=== PATIENT | male | born 1940 | race Caucasian/White ===

== ENCOUNTER → 2018-03-12 09:23 | Outpatient (CLI) | payer MEDICARE, SELFPAY ==
--- NOTE | 2018-03-12 09:29 | STE_ITS ---
Reason For Study: CAD Stress Results Protocol: Alfred Protocol Maximum Predicted HR: 144 bpm Target HR: 122 bpm% Max imum Predicted HR: 100 % Heart Stage Duration Rate BPCom ment (mm:ss) (bpm) Baseline 58 132/80 No Chest Pain Alfred Protocol Stage I 3:00 95 140/78No Chest Pain Alfred Protocol Stage II 3:00 12 6 152/70No Chest Pain Alfred Protocol Stage III 3:00 14 4 172/70No Chest Pain; Mild Dyspnea No Chest Pain; Apical Images Obtained When HR Was Recovery 84 140/66 144 BPM Stress Duration: 9:00 mm:ss Maximum Stress HR: 144 bpmM ETS: 10 Baseline Echocardiogram Findings The estimated ejection fraction is 65 %. Stress Echo Wall motion Data Resting WMIntermediate WMStress WM Resting Wall Motion Wall Motion Stress No regional wall motion No regional wall motion abnormalities noted. abnormalities noted. EKG Data Normal intervals are noted. The patient exercised according to the regular Alfred protocol for a total duration of 9:00. The maximum heart rate attained was 150 beats per minute. This was 104% of maximum predicted heart rate. The patient exercised into stage 4 of the Alfred protocol. During stress, there were no ST or T wave changes noted to suggest ischemia. Interpretation Summary The estimated ejection fraction is 65 %. Normal, adequate, treadmill echocardiogram. Negative for ischemia by EKG and echocardiographic criteria. No anginal symptoms noted. Rare PAC noted. Hypertensive blood pressure response to exercise. Average exercise capacity for age. Final LVEF is 75%. No complications. Ordering Physician: Renato Bowden Referring Physician: Renato Bowden Performed By: Justin Church RCS
== END ==
PROVIDERS: Family Provider Family Medicine; PCP Family Medicine; Visit Provider Internal Medicine Cardiovascular Disease
DX: I25.10 Atherosclerotic heart disease of native coronary artery without angina pectoris (principal); I10 Essential (primary) hypertension; E78.5 Hyperlipidemia, unspecified; Z95.1 Presence of aortocoronary bypass graft
CPT/HCPCS: 93017; 93350

== ENCOUNTER → 2019-05-24 10:46 | Outpatient (CLI) | payer MEDICARE, SELFPAY ==
[2019-05-02 09:24] VITALS: BMI 26.4
--- NOTE | 2019-05-24 10:48 | STEWCON_ITS ---
Reason For Study: CAD; S/P CABG Stress Results Protocol: Alfred Protocol Maximum Predicted HR: 143 bpm Target HR: 122 bpm % Maximum Predicted HR: 94 % DurationHeart Rate Stage (mm:ss) (bpm) BP Comment Baseline 63 138/62No Chest Pain; 3 ML Diluted Definity Given Alfred Protocol Stage I 3:00 82 140/60No Chest Pain Alfred Protocol Stage II 3:00 111 156/62No Chest Pain Alfred Protocol Stage III 3:00 134 172/64No Chest Pain; Mild Dyspnea Recovery 80 130/68No Chest Pain Stress Duration: 9:00 mm:ss Maximum Stress HR: 134 bpm METS: 10 Baseline Echocardiogram Findings The estimated ejection fraction is 65 %. Stress Echo Wall motion Data Resting WM Intermediate WM Stress WM Resting Wall Motion Wall Motion Stress No regional wall motion Mid-Lateral : Mildly hypokinetic. abnormalities noted. EKG Data The baseline ECG displays normal sinus rhythm. The patient exercised according to the regular Alfred protocol for a total duration of 9:00. The maximum heart rate attained was 139 beats per minute. This was 97% of maximum predicted heart rate. The patient exercised into stage 4 of the Alfred protocol. During stress, there were no ST or T wave changes noted to suggest ischemia. No clinical angina was noted. Interpretation Summary The estimated ejection fraction is 65 %. Mid-Lateral : Mildly hypokinetic Abnormal, adequate, treadmill echocardiogram. Positive for ischemia by echocardiographic criteria. No anginal symptoms noted. Rare PACs, PVCs, and ventricular triplet noted during peak exercise. Patient appeared to develop mid anterior lateral hypokinesis at peak exercise. Average exercise capacity for age. Final LVEF of 55%. Test terminated due to target heart rate achieved and dyspnea which may be an anginal equivalent. Poor echo windows requiring Definity agent makes interpretation somewhat problematic. No complications. The study was technically difficult. Contrast injection was performed. Ordering Physician: Renato oBwden Referring Physician: Esa Celeste Performed By: Daily Pradhan, SHARON, RVT
== END ==
PROVIDERS: Family Provider Family Medicine; PCP Family Medicine; Referring Provider Internal Medicine Cardiovascular Disease; Visit Provider Internal Medicine Cardiovascular Disease
DX: I25.10 Atherosclerotic heart disease of native coronary artery without angina pectoris (principal); I10 Essential (primary) hypertension; E78.5 Hyperlipidemia, unspecified; Z95.1 Presence of aortocoronary bypass graft
CPT/HCPCS: 93017; 93350; Q9957; A4216; C8928

== ENCOUNTER 2019-05-27 06:43 | Day surgery (SDC) | payer MEDICARE, SELFPAY ==
[2019-05-02 09:24] VITALS: BMI 26.4
--- NOTE | 2019-05-26 08:15 | RAD_ITS ---
STUDY: X-RAY CHEST REASON FOR EXAM: Male, 78 years old. Short of breath. Preheart catheter. TECHNIQUE: 2 view chest. COMPARISON: None. FINDINGS: No evidence of pneumonia, pulmonary edema, pneumothorax or pleural effusion. Emphysematous changes within the lungs. Cardiac silhouette, hilar and mediastinal contours with no acute findings. Atherosclerosis of the thoracic aorta. Sternotomy wires and mediastinal surgical clips. Degenerative osseous changes with no acute osseous abnormality. Right axillary surgical clips. RAD/Chest PA and Lateral IMPRESSION: No acute findings. Emphysema. Prior sternotomy probably for CABG. Electronically Signed: Osmel Li, at 4:14 EDT Tel , Service support ,
[2019-05-26 08:58] LABS: Hematocrit 41.7 % (40-54); Hemoglobin 13.5 g/dL (13.0-16.5); Mean Corp Hgb Conc 32.4 g/dL (32-36); Mean Corpuscular Hgb 29.6 pg (27.0-32.0); Mean Corpuscular Volume 91.4 fL (80-94); Mean Platelet Vol. 12.1 fl (6.2-12.0); Platelet Count 198 K/mm3 (150-450); RBC Distribution Width CV 14.5 % (11.6-14.6); RBC Distribution Width SD 48.9 fl (35.1-43.9); Red Blood Count 4.56 M/mm3 (4.6-6.2); White Blood Count 5.7 K/mm3 (4.4-11.0)
[2019-05-26 09:08] LABS: Prothrombin Time (Protime)PT. 12.8 SECONDS (11.7-14.9)
[2019-05-26 09:09] LABS: Partial Thromboplast Time 32.1 Seconds (24.1-36.2)
[2019-05-26 09:28] LABS: AST(SGOT) 27 U/L (15-37); Alanine Aminotransfer ALT/SGPT 32 U/L (16-61); Albumin, Serum 3.4 g/dL (3.2-5.0); Alkaline Phosphatase 48 U/L (45-117); Anion Gap 7 (5-15); BUN 24 mg/dL (7-18); BUN/Creat Ratio 25.2 RATIO (10-20); Bilirubin, Direct 0.09 mg/dL (0.00-0.30); Calcium,Total 8.5 mg/dL (8.5-10.1); Chloride 107 mmol/L (98-107); Cholesterol 216 mg/dL (200); Creatinine, Serum 0.95 mg/dL (0.70-1.30); EST Glomerular Filtration Rate 81 mL/min (>60); Est Glom Filt Rate - Afr Amer 98 mL/min (>60); Globulin 4.1 g/dL (2.2-4.2); Glucose 92 mg/dL (74-106); High Density Lipoprotein 60 mg/dL; Potassium 4.2 mmol/L (3.5-5.1); Protein, Total 7.5 g/dL (6.4-8.2); Sodium Level 138 mmol/L (136-145); Triglycerides 63 mg/dL; Very Low Density Lipoprotein 13 mg/dL (5-40)
[2019-05-27 07:03] VITALS: BMI 25.9
--- NOTE | 2019-05-27 09:20 | PCM.HP.BLA ---
Problem List (1) Abnormal stress echocardiogram Status: Acute (2) Atherosclerosis of coronary artery of [place] heart without angina pectoris Status: Chronic Comment: CABG x 3- CRONIN-Ramus, SARAH-LAD, SVG-OM 11/13/2006 (3) Essential hypertension Status: Chronic (4) H/O coronary artery bypass surgery Status: Chronic Comment: CABG x 3- CRONIN-Ramus, SARAH-LAD, SVG-OM 11/13/2006 (5) Hyperlipidemia Status: Chronic History and Physical Date of Admission: 05/27/19 [facility] [address] [place] [address] OFFICE VISIT Date of Service: 05/02/19 MR#: [id number] Acct: [id number] Name: SOCO LEVIN Rep #: [id number] : 1940 Provider: Renato Bowden MD Age/Sex: 78/M Location: [facility] [place] Status: Signed HPI HPI History of Present Illness Details: HPI Chief Complaint: routine f/u Details: Details: Mister Levin Is a very pleasant 78-year-old gentleman with a history of hypertension, hypercholesterolemia, coronary artery disease who underwent catheterization in 2006 at [facility], [place], operated by [facility]. At that time he was found to have a critical lesion in his LAD and ramus intermedius. Intervention was planned however upon engagement of the left main coronary artery there appeared to be a left main dissection. Patient was treated with an intra-aortic balloon pump and underwent emergent three-vessel bypass surgery by Dr. Ulrich. At that time he underwent a CRONIN to the ramus intermedius, and SARAH to the LAD, and an SVG to the obtuse marginal. Subsequent to that the patient has done extraordinarily well. He denies any chest pain, angina, shortness of breath or dyspnea on exertion. Unfortunately as of January 2014, he discontinued all of his medications and did not follow-up with a construction representative. The patient became aware that I had transferred out to [place] which is closer to his home, and he is here now for follow-up. Patient states that he had no issues with his medications other than some mild myalgias with the low-dose Crestor. He has been tried on Zetia, and Zocor in the past and stopped them due to myalgias. patient was previously admitted on 12/15/14 for lower GI bleeding, requiring 3 units of PRBCs. His final hemoglobin was 9.3. He had some asymptomatic ventricular tachycardia according to the report but no additional workup was performed. Patient has a history of diverticulitis and had consumed peanuts inadvertently. He's had no further GI bleeding and is back on his baby aspirin. Since discharge she has had no chest pain, angina, shortness of breath or dyspnea on exertion. He is taking and tolerating his medications well. He has had no change in his exercise capacity. Patient works as a baker, and has had no change in his daily activity. Unfortunately is unable to take statins due to myalgias. His blood pressure at home runs in the 130s systolic. His most recent walking stress echocardiogram was 03/12/18 which was negative for inducible ischemia. Ejection fraction is 65%. In our office today his blood pressure is 150/66, and pulse is 52 and regular. His physical exam is as below. His lipids As of 12/19/14 showed an HDL of 46 and LDL 109. Repeat lipids are pending. Intake Vital Signs 05/02/19 Height 5 ft 11 in 05/02/19 Weight: 190 lb 05/02/19 Body Mass Index (BMI) 26.4 05/02/19 Blood Pressure 150/66 H 05/02/19 Blood Pressure Location Rt brachial 05/02/19 Blood Pressure Position Sitting 05/02/19 Respiratory Rate 20 H 05/02/19 Pulse Rate 52 L 05/02/19 Pulse Source Auscultation Intake Visit Reasons: 6 M Component Assembler Required: No Accompanied by: Is patient in pain?: No Allergies venom-honey bee [bee venom (honey bee)] Allergy (Verified 04/29/19 10:04) Anaphylaxis ezetimibe [From Zetia] Adverse Reaction (Intermediate, Verified 04/29/19 10:04) Dizziness simvastatin Adverse Reaction (Intermediate, Verified 04/29/19 10:04) Dizziness rosuvastatin [From Crestor] Adverse Reaction (Verified 04/29/19 10:04) confusion Medications aspirin 81 mg tablet,delayed release 81 mg PO QDAY 02/20/18 [History Confirmed 05/02/19] coenzyme Q10 100 mg capsule 100 mg PO QDAY 02/20/18 [History Confirmed 05/02/19] omega-3 fatty acids 1,000 mg capsule 1,000 mg PO QDAY 02/20/18 [History Confirmed 05/02/19] metoprolol succinate ER 25 mg tablet,extended release 24 hr 12.5 mg PO QDAY tab 03/08/18 [History Confirmed 05/02/19] lisinopril 2.5 mg tablet 2.5 mg PO DAILY 05/02/19 [History Confirmed 05/02/19] [facility] Medical History Hyperlipidemia (Chronic) Atherosclerosis of coronary artery of [place] heart without angina pectoris (Chronic) GI bleed (Chronic) Traumatic amputation (Chronic) Hypertension (Inactive) Surgical History H/O coronary artery bypass surgery (Chronic 11/13/06) Family History Brother CAD (coronary artery disease) Father CVA (cerebral vascular accident) Social History (Updated 05/02/19 @ 09:43 by Renato Bowden MD) Smoking Status: Former smoker ROS Const Const: Positive for other (Feels well); negative for fatigue, weakness, body ache, fever(s), headache(s), chills, frequent falls, night sweats, daytime sleepiness, difficulty sleeping, excessive sweating, weight gain, weight loss, increased appetite, poor appetite or anorexia Eyes Eyes: Negative for blind spots, loss of peripheral vision, transient loss of vision, blurry vision, change in vision, double vision, floaters, tunnel vision or other ENT ENT: Negative for headache(s), dizziness, hearing loss, tinnitus, Nosebleed/epistaxis, balance problems, post nasal drip, lip swelling, tongue swelling, bleeding gums, hoarseness, neck pain, dry mouth or other Cardio Chest Pain: No Palpitations: No Edema: None Muscle aches with walking: None Resp Respiratory: Negative for SOB with activity, SOB at rest, SOB orthopnea\SOB lying down, Cough, Coughing up blood/hemoptysis, chest congestion, pain on inspiration, snoring, stridor, wheezing, crackles, paroxysmal nocturnal dyspnea or other GI GI: Negative nausea, vomiting, heartburn, constipation, belching, bloating, cramping, vomiting blood/hematemesis, bright, red blood in stools, black,tarry stools, loose stools, Difficulty Swallowing or other : Negative for hematuria, frequent nighttime urination/ nocturia, erectile dysfunction or abnormal vaginal bleeding Musc Musc: Negative for muscle aches/ myalgia, muscle weakness, joint pain or balance problems Skin Skin: Negative redness, non-healing lesions, rash, unusual bruising, skin ulcer, wounds, jaundice or other Neuro Neuro: Negative for dizziness, lightheadedness, near syncope, syncope, orthostatic symptoms, frequent falls, headache(s), weakness, confusion, memory loss, restless legs, blurry vision, double vision, vertigo, seizures, lack of coordination or other John Hematologic/Lymphatic: Negative for easy bleeding, easy bruising, enlarged lymph nodes or other Endo Endo: Negative for fatigue, cold intolerance, heat intolerance, excessive sweating, flushing, increased thirst/drinking, increased hunger, hair loss, hair growth or other Psych Psych: Negative for anxiety, depression, thoughts of harming anyone, thoughts of harming yourself, visual hallucinations, panic attacks or audible hallucinations Allergy Allergy/Immunology: Negative for throat swelling, Negative for tongue swelling, Negative for hives, Negative for rash, Negative for lip swelling Cardiology Exam Const Appearance: cooperative, healthy appearing and no acute distress Nutritional Appearance: well nourished Orientation: alert, oriented x3 and oriented to person Head Head: normal to inspection, normocephalic and atraumatic Nose: external nose normal Face and Sinus: face symmetric Mouth: oral mucosae normal Eyes General: appearance normal, both eyes and all related structures Eyelids: eyelids normal Conjunctivae: conjunctivae normal Pupils: PERRL and normal by confrontation EOM: EOM intact bilaterally Neck Neck: normal visual inspection and full ROM Carotids: normal carotid upstroke Chest Chest inspection: normal inspection of the chest Auscultation: Bilateral: Clear to Auscultation Cardio Palpation: normal PMI Rate: regular rate Rhythm: regular rhythm Heart sounds: S1 normal and S2 normal GI GI: normal to inspection, no hepatosplenomegaly and bowel sounds present Neuro General: alert, awake, oriented x3, CN's II-XI intact bilaterally and moves all extremities Skin Skin: no rashes or lesions noted Extremities Pulses: Normal: Right Femoral Pulse, Left Femoral Pulse, Right Dorsalis Pedis Pulse, Left Dorsalis Pedis Pulse, Right Posterior Tibial Pulse, Left Posterior Tibial Pulse, Right Radial Pulse, Left Radial Pulse Lower Extremity Edema: None: Bilateral Psych Psychological: normal affect Assessment & Plan 1. Atherosclerosis of coronary artery of [place] heart without angina pectoris I25.10 CABG x 3- CRONIN-Ramus, SARAH-LAD, SVG-OM 11/13/2006 Plan 1. Coronary artery disease: It is been 12 years since patient's bypass surgery, and I recommended the patient undergo a yearly surveillance stress echocardiogram to monitor his grafts. If this is grossly abnormal, the patient may require diagnostic coronary angiogram and graft angiography. In the meantime we will continue baby aspirin. He has a history of GI bleeding, so Would be very hesitant to place him on dual antiplatelet therapy unless absolutely necessary. Orders Orders: Stress Test Echo w/o Contrast Today 2. Hyperlipidemia E78.5 Plan 2. Hyperlipidemia: Unfortunately the patient is unable to tolerate statins, Zetia, and is maintained on coenzyme Q and omega-3 fatty acids. Repeat lipids are pending. Orders Orders: Stress Test Echo w/o Contrast Today 3. Essential hypertension I10 Plan 3. Hypertension: Patient's blood pressure at home runs in the 130s but today it is slightly elevated as he had to run back and forth to his car. We will check his treadmill echocardiogram for blood pressure response to exercise, and if it is significant, would recommend increasing his lisinopril. 4. Return office in 6 months. This note was generated using a voice recognition system and there may be incorrect words, spelling or punctuation that were not noted when reviewing the office note prior to saving. Orders Orders: Stress Test Echo w/o Contrast Today Plan Detail Other Orders Orders: Stress Test Echo w/o Contrast Today Z95.1 Other Medications New: lisinopril 2.5 mg PO DAILY Follow Up +6M (Bowden) Coding Level of Care Code Off vis,est,level 3 Diagnoses Atherosclerosis of coronary artery of [place] heart without angina pectoris I25.10 Hyperlipidemia E78.5 Essential hypertension I10 Coding Level of Care Code Off vis,est,level 3 Diagnoses Atherosclerosis of coronary artery of [place] heart without angina pectoris I25.10 Hyperlipidemia E78.5 Essential hypertension I10 Supplemental Info Supplemental Information Labs LDL Cholesterol 109 mg/dL (0-130) 12/19/14 HDL Cholesterol 46 mg/dL (40-) 12/19/14 Triglycerides 61 mg/dL (0-199) 12/19/14 VLDL Cholesterol 12 mg/dL (5-40) 12/19/14 Diagnostics Stress Echocardiogram 03/12/18 05/02/19 0943 <Electronically signed by Renato Bowden MD> Date Renato Bowden MD Cosign Signature: Date (if applicable) CC: Esa Celeste MD ~ Interventional cardiology addendum: The patient seen and examined on day of procedure, no interim change noted. The risks/benefits of the procedure were thoroughly explained the patient including specific attention to lack of on-site surgical back-up, and the patient is agreed to proceed. Left heart catheterization with graft to follow.
--- NOTE | 2019-05-27 09:30 | CL.D_ITS ---
Patient Name: SOCO WHITMAN Study Date: 05/27/2019 Performing: Renato Bowden MD Ht: 71 inches 180.34 cm : 1940 Wt: 185.98 lbs 84.36 kg Age: 78 Gender: male BSA: 2.04 PROCEDURE(S) PERFORMED XX64-SUY/COR/LV/CABG CLINICAL PROFILE AND INDICATIONS Indications: Stable Known CAD Heart Failure: None Stress/Imaging Date: 05/24/2019 Angina Classification Anginal Classification w/in 2 Weeks: No symptoms CAD Presentations: No Sxs, no angina. Comorbidities/Risk Factors: Hypertension Dyslipidemia Prior CABG CONCLUSIONS Triple vessel CAD of the LAD, RAMUS and LCX Non obstructive coronary artery disease of non bypassed RCA. Perserved Left Ventricular systolic function with normal EDP LVEF: by LV gram 65 % Widely patent SVG to OM Widely patent CRONIN to RAMUS Widely patent intact SARAH to LAD. RECOMMENDATIONS Management as per referring Bilingual Medical Assistant Manual sheath removal. DESCRIPTION OF PROCEDURE The patient arrived to the procedure lab. The risks and benefits of the procedure as well as a full d escription of our services here and current unavailability of surgical backup were fully explained to the patient and/or their significant other prior to the catheterization. The Timeout was completed, verifying the correct patient and procedure. The patient's procedural site was prepped and draped in the usual fashion. Local anesthetic was given subcutaneously to right groin region with Lidocaine 2%. Using a modified Seldinger technique, arterial access was obtained via the right femoral artery, a 4 Fr sheath was inserted Left Coronary Artery selective angiography was performed in multiple views us ing a 4 Fr. JL5 catheter. Right Coronary Artery selective angiography was then performed in multiple views using a 4 Fr. 3DRC catheter. Saphenous Vein graft to the OM 1 selective angiography was perform ed in multiple views using a 4 Fr. 3DRC catheter. Left internal mammary artery graft to the Ramus selective angiography was performed in multiple views using a 4 Fr. 3DRC catheter. Right in ternal mammary artery graft to the LAD selective angiography was performed in multiple views using a 5 Fr. IM catheter. Left Ventriculography was performed in ALFREDO projection using a 4 Fr. Pigtail cathet er. LV to AO pullback pressures were then recorded.The arterial sheath was pulled and manual compress ion applied until hemostasis is achieved. CORONARY ANGIOGRAPHY DOMINANCE: Right Dominant LEFT HEART ASSESSMENT Left Ventricular Ejection Fraction: by LV Gram 65 % Normal LV wall motion Normal Left Ventricular systolic function LVEDP: 15 mmHg LEFT MAIN: Non-obstructive LEFT ANTERIOR DESCENDING ARTERY: PROX LAD: 85 % Stenosis CIRCUMFLEX ARTERY: MID CIRC: 85 % Stenosis RAMUS: 85 % Stenosis RIGHT CORONARY ARTERY: MID RCA: Mild luminal irregularities less than 30% GRAFTS: CRONIN graft to the Ramus is patent SARAH graft to the LAD is patent Saphenous Vein graft to the 1st OM is patent COMPLICATIONS No Complications PROCEDURE MEDICATIONS Versed 1 mg IV Oxygen: 2 L/min via nasal cannula SUMMARY OF HEMODYNAMIC DATA Time AIR REST ECG 07:02:19 AO 150/55 (88) SA 08:54:32 LV 149/-13, 12 09:16:18 LV 153/-12, 15 09:16:25 LVp 148/-18, 15 09:16:32 AOp 140/50 (84) 09:16:37 Signed By Renato Bowden MD On 05/27/2019 09:29:38 Renato Bodwen MD
== END 2019-05-27 14:46 | disposition home or self-care (01) ==
LOC: CLSP 06:43
PROVIDERS: Family Provider Family Medicine; PCP Family Medicine; Referring Provider Internal Medicine Cardiovascular Disease; Visit Provider Internal Medicine Cardiovascular Disease
DX: I25.10 Atherosclerotic heart disease of native coronary artery without angina pectoris (principal); I10 Essential (primary) hypertension; E78.5 Hyperlipidemia, unspecified; R94.39 Abnormal result of other cardiovascular function study; Z95.1 Presence of aortocoronary bypass graft; Z79.82 Long term (current) use of aspirin; Z79.899 Other long term (current) drug therapy; Z87.891 Personal history of nicotine dependence
CPT/HCPCS: 36415; 71046; 80048; 80061; 80076; 85027; 85610; 85730; 93459; 99152; 99153; J7040; C1769; C1894; Q9967

== ENCOUNTER → 2023-04-20 | Outpatient (CLI) | payer MEDICARE, SELFPAY ==
--- NOTE | 2023-04-20 14:21 | VDLE_ITS ---
Reason For Study: Low Back Pain RIGHT LEFT GSV is normal. GSV is normal. CFV is compressible, spontaneous, phasic, CFV is compressible, spontaneous, phasic, competent and demonstrates normal competent, and demonstrates normal augmentation. augmentation. FV is compressible, spontaneous, phasic, FV is compressible, spontaneous, phasic, competent and demonstrates normal competent and demonstrates normal augmentation. augmentation. POP V is compressible, phasic, and POP V is compressible, spontaneous, phasic, INCOMPETENT for greater than 1.0 second. competent and demonstrates normal T/P Trunk is compressible. augmentation. PTV is compressible. T/P Trunk is compressible. RT PerV is compressible. PTV is compressible. Procedure LT PerV is compressible. This is a venous duplex using B-mode, color flow and spectral Doppler. Exam performed in department. A preliminary report was called and/or faxed to Dr. Byrne. VL/Venous Duplex US - Kevin Extrem Interpretation Summary No evidence for acute deep venous thrombosis bilateral lower extremities with p atent and compressible bilateral great saphenous veins. Incompetent right popliteal vein for greater than 1 second Ordering Physician: Wes Byrne Referring Physician: Wes Byrne Performed By: Chely Jeffrey, SHARON, RVT
[2023-04-20 14:45] LABS: ALB/GLOB Ratio 0.6 RATIO (0.9-2.4); AST(SGOT) 39 U/L (15-37); Alanine Aminotransfer ALT/SGPT 28 U/L (16-61); Alkaline Phosphatase 73 U/L (45-117); Anion Gap 5 (5-15); BUN 15 mg/dL (7-18); BUN/Creat Ratio 18.2 RATIO (10-20); Calcium,Total 9.1 mg/dL (8.5-10.1); Chloride 102 mmol/L (98-107); Creatinine, Serum 0.82 mg/dL (0.70-1.30); EST Glomerular Filtration Rate 95 mL/min (>60); Est Glom Filt Rate - Afr Amer 115 mL/min (>60); Globulin 4.7 g/dL (2.2-4.2); Glucose 86 mg/dL (74-106); Potassium 4.6 mmol/L (3.5-5.1); Protein, Total 7.7 g/dL (6.4-8.2); Sodium Level 135 mmol/L (136-145)
== END | disposition home or self-care (01) ==
PROVIDERS: PCP Internal Medicine; Referring Provider Internal Medicine; Visit Provider Internal Medicine
DX: R22.43 Localized swelling, mass and lump, lower limb, bilateral (principal); M54.50 Low back pain, unspecified; Z13.0 Encounter for screening for diseases of the blood and blood-forming organs and certain disorders involving the immune mechanism
CPT/HCPCS: 36415; 80053; 93970

== ENCOUNTER → 2023-04-22 | Outpatient (CLI) | payer MEDICARE, SELFPAY ==
--- NOTE | 2023-04-22 14:04 | MRI_ITS ---
STUDY: MRI LUMBAR SPINE WITHOUT CONTRAST REASON FOR EXAM: Male, 82 years old. BACK PAIN TECHNIQUE: Standardized fat and water weighted pulse sequences were obtained in the sagittal and axial planes. COMPARISON: None FINDINGS: T12-L1: Normal endplates. Normal disc height, hydration and morphology. Normal bilateral facet joints. Normal central canal and bilateral lateral recesses. Normal bilateral intervertebral neural foramina. Normal lumbar lordosis. There is no substantial scoliosis. Normal conus medullaris that terminates at T12-L1. No evidence for acute fracture or subluxation. There are multiple. Scattered low signal lesions seen throughout much of the lumbar spine and sacrum at all multiple pulse weighted sequences consistent with nonspecific sclerotic lesions possibly metastatic. L1-2: Normal endplates. Normal disc height, desiccation and minimal annular bulge.. Normal bilateral facet joints. Normal central canal and bilateral lateral recesses. Normal bilateral intervertebral neural foramina. L2-3: Normal endplates. Normal disc height, desiccation and minimal bulging disc osteophyte complex.. Minor facet arthropathy.. Normal central canal and bilateral lateral recesses. Normal bilateral intervertebral neural foramina. L3-4: Normal endplates. Normal disc height, desiccation and minimal annular bulge.. Facet arthropathy and thickening of ligamenta flava... Mild narrowing of central canal and normal bilateral lateral recesses. Moderate bilateral neural foraminal encroachment.. L4-5: Normal endplates. Normal disc height, hydration and mild annular bulge. Facet arthropathy and thickening of ligamenta flava.. Normal central canal. Severe bilateral lateral recess and neural foraminal stenosis exaggerated by shortened pedicles L5-S1: Normal endplates. Normal disc height, desiccation and minimal bulge.. Bilateral facet arthropathy. Normal central canal and bilateral lateral recesses. Moderate left neural foramina stenosis and moderate to severe narrowing on the right Normal visualized sacral ala. Normal visualized paraspinous soft tissue structures. 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
== END | disposition home or self-care (01) ==
LOC: MRI 13:54
PROVIDERS: PCP Internal Medicine; Referring Provider Internal Medicine; Visit Provider Internal Medicine
DX: M54.50 Low back pain, unspecified (principal)
CPT/HCPCS: 72148

== ENCOUNTER → 2023-05-05 | Outpatient (CLI) | payer MEDICARE, SELFPAY ==
--- NOTE | 2023-05-05 14:52 | ECHOD_ITS ---
Reason For Study: CAD/ASHD Procedure This was a 2D Doppler, Color Flow transthoracic echocardiogram. The study was technically difficult. Exam performed in department. Left Ventricle Normal size and thickness. The left ventricular ejection fraction is 65 %. Normal diastology for age. Right Ventricle Normal right ventricle. Atria The left atrium is mildly enlarged. Normal right atrium. Mitral Valve There is Severe focal posterior mitral annular calcification. Trivial mitral valve insufficiency. Tricuspid Valve Mild tricuspid valve insufficiency. Normal pulmonary artery pressure. Aortic Valve Moderate diffuse aortic valve calcification. The aortic valve is not well visualized in the short axis view. Mild aortic valve stenosis on 2D images. Pulmonic Valve The pulmonic valve is not well visualized. Great Vessels Normal sized aortic root. Pericardium/Pleural No pericardial effusion. MMode/2D Measurements & Calculations LVIDd: 5.0 cm IVSd: 0.93 cm LVOT diam: 2.1 cm LVIDs: 3.8 cm LVPWd: 0.93 cm LVOT area: 3.4 cm2 RVDd: 4.7 cm FS: 24.5 % Ao root diam: 3.1 cm LAV(MOD-bp): 66.8 ml LVAd ap4: 34.6 cm2 LA dimension: 4.2 cm LAV(MOD-bp) Indexed: 34.2 ml/m2 LVLd ap4: 8.3 cm LAV(MOD-sp2): 75.6 ml EDV(MOD-sp4): 118.0 ml LAV(MOD-sp4): 54.9 ml EDV(sp4-el): 123.2 ml LVAs ap4: 18.3 cm2 LVLs ap4: 7.1 cm ESV(MOD-sp4): 40.4 ml ESV(sp4-el): 39.6 ml EF(MOD-sp4): 65.8 % EF(sp4-el): 67.8 % SV(MOD-sp4): 77.6 ml SV(sp4-el): 83.6 ml LA A4 area: 19.2 cm2 RA A4 area: 17.0 cm2 TAPSE: 1.4 cm Time Measurements MV dec time: 0.19 sec Doppler Measurements & Calculations MV E max yoel: 89.8 cm/sec Lat Peak E' Yoel: 13.1 cm/sec Med Peak E' Yoel: 8.5 cm/sec MV A max yoel: 79.3 cm/sec E/E' lat: 6.8 E/E' med: 10.5 MV E/A: 1.1 MV V2 max: 92.8 cm/sec MV P1/2t max yoel: 91.8 cm/sec Ao V2 max: 177.5 cm/sec MV max P.4 mmHg MV P1/2t: 140.3 msec Ao max P.6 mmHg MV V2 mean: 54.6 cm/sec MV mean P.4 mmHg MV dec slope: 191.7 cm/sec2 TUSHAR(V,D): 1.8 cm2 MV V2 VTI: 38.2 cm MVA(P1/2t): 1.6 cm2 LV V1 max: 93.6 cm/sec PA V2 max: 66.3 cm/sec TR max yoel: 251.0 cm/sec LV V1 max P.5 mmHg TR max P.2 mmHg ECHO/Echo Complete Interpretation Summary The left ventricular ejection fraction is 65 %. Normal diastology for age. The left atrium is mildly enlarged. There is Severe focal posterior mitral annular calcification. Moderate diffuse aortic valve calcification. Mild aortic valve stenosis on 2D images. Ordering Physician: Alhaji Pride Referring Physician: Alhaji Pride Performed By: Justin Church RCS
== END | disposition home or self-care (01) ==
LOC: CVS 14:48
PROVIDERS: PCP Internal Medicine; Referring Provider Internal Medicine Cardiovascular Disease; Visit Provider Internal Medicine Cardiovascular Disease
DX: Z98.890 Other specified postprocedural states (principal); I25.10 Atherosclerotic heart disease of native coronary artery without angina pectoris; I10 Essential (primary) hypertension; Z95.1 Presence of aortocoronary bypass graft
CPT/HCPCS: 93306

== ENCOUNTER → 2023-05-21 | Outpatient (CLI) | payer MEDICARE, SELFPAY ==
[2023-05-21 17:37] LABS: Absolute Lymphocyte Count 1.46 X10^3/uL (0.83-4.51); Absolute Neutrophil Count 4.6 X10^3/uL (2.0-7.7); Basophil# 0.06 X10^3/uL; Basophil% 0.8 % (0-1); Eosinophil# 0.47 X10^3/uL; Eosinophils% 6.2 % (0-5); Hematocrit 35.8 % (40-54); Hemoglobin 11.4 g/dL (13.0-16.5); Lymphocyte # 1.46 X10^3/ul (0.83-4.51); Lymphocyte % 19.1 % (19-41); Mean Corp Hgb Conc 31.8 g/dL (32-36); Mean Corpuscular Hgb 28.1 pg (27.0-32.0); Mean Corpuscular Volume 88.4 fL (80-94); Mean Platelet Vol. 12.3 fl (6.2-12.0); Monocyte% 13.1 % (0-10); NRBC Flagged by Analyzer 0 % (0-5); Neutrophil # 4.61 X10^3/uL (2.7-7.7); Neutrophil % 60.4 % (47-70); Platelet Count 256 K/mm3 (150-450); RBC Distribution Width CV 14.3 % (11.6-14.6); Red Blood Count 4.05 M/mm3 (4.6-6.2); White Blood Count 7.6 K/mm3 (4.4-11.0)
[2023-05-21 18:01] LABS: ALB/GLOB Ratio 0.6 RATIO (0.9-2.4); AST(SGOT) 40 U/L (15-37); Alanine Aminotransfer ALT/SGPT 26 U/L (16-61); Albumin, Serum 2.9 g/dL (3.2-5.0); Alkaline Phosphatase 72 U/L (45-117); Anion Gap 5 (5-15); BUN 20 mg/dL (7-18); BUN/Creat Ratio 25.4 RATIO (10-20); Calcium,Total 8.8 mg/dL (8.5-10.1); Chloride 101 mmol/L (98-107); Creatinine, Serum 0.79 mg/dL (0.70-1.30); EST Glomerular Filtration Rate 100 mL/min (>60); Est Glom Filt Rate - Afr Amer 121 mL/min (>60); Glucose 94 mg/dL (74-106); PSA,Total - Annual Screen 3.09 ng/mL (0.00-4.00); Potassium 4.4 mmol/L (3.5-5.1); Protein, Total 7.9 g/dL (6.4-8.2); Sodium Level 135 mmol/L (136-145); Thyroid Stim Hormone (TSH) 2.69 uIU/mL (0.358-3.74)
== END | disposition home or self-care (01) ==
LOC: POLAB3 16:01
PROVIDERS: PCP Internal Medicine; Visit Provider Family Medicine Geriatric Medicine
DX: I25.10 Atherosclerotic heart disease of native coronary artery without angina pectoris (principal); Z13.89 Encounter for screening for other disorder; Z12.5 Encounter for screening for malignant neoplasm of prostate
CPT/HCPCS: 36415; 80053; 84153; 84443; 85025; G0103

== ENCOUNTER → 2023-05-25 | Outpatient (CLI) | payer MEDICARE, SELFPAY ==
[2023-05-28 12:09] LABS: PROEL- A/G Ratio 0.8 (0.7-1.7); PROEL- Albumin 3.2 g/dL (2.9-4.4); PROEL- Alpha-1 Globulin 0.3 g/dL (0.0-0.4); PROEL- Alpha-2 Globulin 0.8 g/dL (0.4-1.0); PROEL- Beta Globulin 1.2 g/dL (0.7-1.3); PROEL- Gamma Globulin 1.7 g/dL (0.4-1.8); PROEL- TOTAL PROTEIN 7.2 g/dL (6.0-8.5); PROEL-M-Spike Not Observed g/dL (Not Observed); PROELU- Albumin, Urine 48.7 % (.); PROELU- Alpha-1-Globulin,Ur 3.7 % (.); PROELU- Alpha-2-Globulin,Ur 14.7 % (.); PROELU- Beta Globulin, Ur 19.3 % (.); PROELU- Gamma Globulin, Ur 13.7 % (.); Total Protein, Ur 34.6 mg/dL (Not Estab.)
== END | disposition home or self-care (01) ==
LOC: POLAB3 16:33
PROVIDERS: PCP Internal Medicine; Visit Provider Family Medicine Geriatric Medicine
DX: Z01.89 Encounter for other specified special examinations (principal); E87.1 Hypo-osmolality and hyponatremia
CPT/HCPCS: 36415; 84165; 84166

== ENCOUNTER → 2023-06-04 | Outpatient (CLI) | payer MEDICARE, SELFPAY ==
--- NOTE | 2023-06-04 11:34 | US_ITS ---
STUDY: THYROID ULTRASOUND REASON FOR EXAM: Male, 82 years old. Palpable nodule TECHNIQUE: Ultrasound evaluation of the thyroid was performed with real-time and static calloway-scale imaging. COMPARISON: None. FINDINGS: RIGHT LOBE: The right lobe of the thyroid gland measures 4.4 x 1.4 x 1.8 cm. There is a homogeneous echotexture. There are no demonstrated solid, cystic or complex lesions. LEFT LOBE: The left lobe of the thyroid gland measures 4.4 x 1.8 x 2.5 cm. There is a homogeneous echotexture. There is a well-defined hypoechoic solid and cystic 2.0 x 1.1 x 1.5 cm nodule in the left thyroid lobe This nodule is mixed cystic and solid, hypoechoic, [id number], smoothly marginated and contains no echogenic foci. TI-RADS points: 3. 2 TI-RADS category: TR3. This nodule is mildly suspicious. Recommend follow-up thyroid ultrasounds at 1, 3 and 5 years. ISTHMUS: The isthmus measures 2 mm. The regional lymph nodes are normal. US/Thyroid IMPRESSION: Normal-sized heterogeneous thyroid gland with left thyroid nodule. Characterization and follow-up described above. Electronically Signed: Cesar Milian MD at 15:22 EDT ,
== END | disposition home or self-care (01) ==
LOC: US 11:33
PROVIDERS: PCP Family Medicine Geriatric Medicine; Referring Provider Family Medicine Geriatric Medicine; Visit Provider Family Medicine Geriatric Medicine
DX: E03.9 Hypothyroidism, unspecified (principal)
CPT/HCPCS: 76536

== ENCOUNTER 2023-06-12 14:36 | Outpatient (CLI) | payer MEDICARE, SELFPAY ==
[2023-06-12 14:42] VITALS: BP 128/61; PULSE 65; RESP 18; TEMP 36.4; O2SAT 100; BMI 23.3
[2023-06-12] MEDS: 0.9% NaCl Peripheral Flush Adult/Peds IV (14:53)
[2023-06-12] MEDS: 0.9% NaCl IVPB Med Flush (250 mL) 15 ML IV (14:59)
[2023-06-12] MEDS: Zoledronic Acid 4 MG in 0.9% Normal Saline (100mL Bag) 100 ML 210 MG IV (15:08)
[2023-06-12 16:25] VITALS: BP 123/59; PULSE 64; TEMP 36.4
== END 2023-06-12 14:37 | disposition home or self-care (01) ==
PROVIDERS: PCP Family Medicine Geriatric Medicine; Referring Provider Family Medicine Geriatric Medicine; Visit Provider Family Medicine Geriatric Medicine
DX: C79.51 Secondary malignant neoplasm of bone (principal)
CPT/HCPCS: 96365; 71260; 74177; J3489; J7050; Q9967; A4216

== ENCOUNTER → 2023-06-12 | Outpatient (CLI) | payer MEDICARE, SELFPAY ==
--- NOTE | 2023-06-12 16:18 | CT_ITS ---
EXAM: CT CHEST, ABDOMEN AND PELVIS WITH INTRAVENOUS CONTRAST CLINICAL INDICATION: METASTASIS TO BONE TECHNIQUE: Helically acquired images were obtained of the chest, abdomen and pelvis with intravenous contrast. This CT exam was performed using one or more of the following dose reduction techniques: automated exposure control, adjustment of the mA and/or kV according to patient size, and/or use of iterative reconstruction technique. CONTRAST: IV 100mL Isovue-300 COMPARISON: No relevant prior studies available. FINDINGS: CHEST: LUNGS AND PLEURAL SPACES: Multiple bilateral pulmonary nodules are noted consistent with metastatic disease. Pulmonary nodules measuring up to 16 mm in maximum diameter. No pleural effusion or thickening. No pneumothorax. HEART: Normal. Heart size is normal. No pericardial effusion. MEDIASTINUM: Normal. No mediastinal or hilar adenopathy. Esophagus is unremarkable. No hiatal hernia. THYROID: Normal. No thyroid nodules or calcification. ABDOMEN: LIVER: Multiple lesions are seen within the liver also consistent with metastatic disease with multiple nodules measuring up to 3 cm in diameter. PANCREAS: Normal. No focal cystic or solid mass. SPLEEN: Normal. Normal size without focal cystic or solid mass. ADRENALS: Normal. No nodules. KIDNEYS AND URETERS: Normal. Normal renal size and position. No hydronephrosis. STOMACH AND BOWEL: Diverticulosis of the colon noted without evidence of acute diverticulitis. PELVIS: APPENDIX: No evidence of acute appendicitis. BLADDER: Normal. REPRODUCTIVE: Unremarkable as visualized. No mass. CHEST, ABDOMEN and PELVIS: INTRAPERITONEAL SPACE: See below. RETROPERITONEAL SPACE: Multiple soft tissue nodules are noted within the retroperitoneum predominantly within the upper abdomen additional 2 cm soft tissue nodule within the right lower quadrant noted as well as additional similar size nodules centrally within the lower abdomen suggestive of peritoneal metastases. BONES/JOINTS: Lytic lesion involves the anterolateral portion of the right second rib associated with 3.2 cm soft tissue mass. Compression deformities of the T6, L2 L4 vertebral bodies may be pathologic in origin. Weekend osteoblastic changes are noted to involve the same vertebral bodies. SOFT TISSUES: Normal. No discrete abdominal or pelvic wall hernia. VASCULATURE: Normal. Aorta is non-dilated. No aortic dissection. No obvious central pulmonary embolism although this study was not performed with the pulmonary embolism protocol. LYMPH NODES: 2.4 cm right axillary lymph node consistent with metastatic lesion. CT/CT Chest, Abd, Pel w/Contrast IMPRESSION: 1. Extensive metastatic disease involving the lungs, liver, retroperitoneum, peritoneal cavity and multiple bony structures as described above. 2. Pathologic fractures of the T6, L1, L2 and L4 vertebral bodies. Electronically Signed: Kip Leon MD at 16:56 EDT ,
== END | disposition home or self-care (01) ==
LOC: CT 14:30
PROVIDERS: PCP Internal Medicine; Referring Provider Family Medicine Geriatric Medicine; Visit Provider Family Medicine Geriatric Medicine
DX: C79.51 Secondary malignant neoplasm of bone (principal)
CPT/HCPCS: 71260; 74177; Q9967

== ENCOUNTER → 2023-06-15 | Outpatient (CLI) | payer MEDICARE, SELFPAY | END | disposition home or self-care (01) | LOC: LABSPEC 13:39 | PROVIDERS: PCP Family Medicine Geriatric Medicine; Visit Provider Family Medicine Geriatric Medicine | DX: N39.0 Urinary tract infection, site not specified (principal) | CPT/HCPCS: 87086; 87088 ==

== ENCOUNTER → 2023-06-26 | Outpatient (CLI) | payer MEDICARE, SELFPAY ==
[2023-06-26] VITALS (14 sets, daily range): BP systolic 97–131; BP diastolic 57–68; PULSE 72–84; RESP 12–22; TEMP 36.5; O2SAT 96–100; BMI 21.4
--- NOTE | 2023-06-26 | ASPIGT_PTH ---
PATIENT: SOCO WHITMAN LOC: [place] U#:[id number] AGE/SX: 82/M ROOM: RE06/26/[address]: Dr. Davi Baptiste MD : 1940 BED: DIS: 06/26/2023 SPEC #: [id number] RECD: 06/26/23 10:51 STATUS: CK REQ #: [id number] KENNA: 06/26/23 00:[address]: Davi Baptiste DEPT: SURGICAL PATHOLOGY RECD BY: Tahir Mcnulty ENTERED: 06/26/23 10:51 SP TYPE: ASP RAD ELSY DR: Dr. José Antonio Oseguera MD Tissues: Liver, NOS Procedures: FNA Specimen Adequacy Special Stain Group II Surgery Specimen Level IV Surgery Specimen Level V Imprint (control) HEADER OPERATION: CT-guided liver biopsy PRE-OP DIAGNOSIS: Mass TISSUE SUBMITTED: Liver 18-gauge core MICROSCOPIC DIAGNOSIS Liver, CT-guided needle core biopsy: Metastatic malignant melanoma. See comment. AM:wanda 06/29/2023 COMMENT Immunohistochemistry ([id number]) supports the above diagnosis. Two touch prep smears were made at time of procedure and reviewed by Dr. Justice ty and read out as `positive for non-small cell carcinoma'. MICROSCOPIC DESCRIPTION Slides are reviewed. GROSS DESCRIPTION Received is one container labeled with the patient's name and not further designated. The specimen consists of multiple irregular fragments of dark boucher to black tissue that in aggregate measure 2.0 x 0.2 x <0.1 cm. The specimen is totally submitted in one cassette. / AM:wanda 06/26/2023 TC:0 CPT: 09958 , 15213, 72727 ADDENDUM ADDENDUM ADDENDUM ADDENDUM ADDENDUM ADDENDUM ADDENDUM ADDENDUM ADDENDUM ADDENDUM ADDENDUM ADDENDUM ADDENDUM ADDENDUM ADDENDUM ADDENDUM ADDENDUM ADDENDUM ADDENDUM ADDENDUM ADDENDUM ADDENDUM ADDENDUM ADDENDUM ADDENDUM ADDENDUM ADDENDUM ADDENDUM ADDENDUM ADDENDUM ADDENDUM ADDENDUM ADDENDUM ADDENDUM ADDENDUM 07/24/2023 10:24 ADDENDUM 07/24/2023 10:24 ADDENDUM 07/24/2023 10:24 ADDENDUM 07/24/2023 10:24 ADDENDUM 07/24/2023 10:24 PD-L1 ([id number]) IMMUNOHISTOCHEMICAL ANALYSIS FROM [facility] RESULTS: Tumor proportion score: <1% / Negative [facility] SOLID TUMOR NGS REPORT FROM [facility] RESULT SUMMARY: Abnormal DETECTED STRUCTURAL ALTERATIONS: Complex cytogenetic abnormalities (three or more aberrations) were detected. High level TMB is DETECTED DETECTED GENOMIC ALTERATIONS: Tier I: Variants of Strong Clinical Significance HRAS p.([id number]) CTNNB1 p.([id number]) TERT C250T Tier III: Variants of Unknown Clinical Significance ARID1A p.([id number]) BRCA1 p.([id number]) KIT p.([id number]) IMMUNOTHERAPY BIOMARKERS: Tumor Mutation [place]: High (21.2 Mutations / MB) Microsatellite Instability: MSI Negative (0.81%) PERTINENT NEGATIVE RESULTS: The following genes are NEGATIVE for clinically relevant mutations. Mutational hotspots and surrounding exonic regions were interrogated for DNA level point mutations and indels (fusions not assayed). AKT1, APC, GEOVANY, BRAF, BRCA2, CDH1, CDKN2A, EGFR, EPCAM, ERBB2, ERBB4, FBXW7, FGFR1, FGFR2, FGFR3, GNA11, GNAQ, GNAS, IDH1, IDH2, KDR, KRAS, MEN1, MET, MLH1, MSH2, MSH6, NOTCH1, NRAS, PDGFRA, PIK3CA, PMS2, POLE, PTEN, PTPN11, RB1, RET, SMAD4, SMO, STK11, TP53, TSC1, TSC2, VHL Please see complete report in e-chart or EMR
--- NOTE | 2023-06-26 | IMM_PTH ---
PATIENT: SOCO WHITMAN LOC: CT U#:[id number] AGE/SX: 82/M ROOM: RE06/26/[address]: Dr. Davi Baptiste MD : 1940 BED: DIS: 06/26/2023 SPEC #: [id number] RECD: 06/29/23 15:51 STATUS: CK REQ #: [id number] KENNA: 06/26/23 00:[address]: Davi Baptiste DEPT: IMMUNOHISTOCHEMISTRY RECD BY: Jagruti Simmons ENTERED: 06/29/23 15:52 SP TYPE: IMMUNO OTHR DR: Dr. José Antonio Oseguera MD Tissues: Liver, NOS Procedures: NAPSIN A (add) CD45 (add) TTF1 (add) Vimentin (add) Pankeratin (initial) MELAN-A (add) S-100 (add) PHYSICIAN & INSTITUTION [place] [id number] SPECIMEN INFORMATION: Tissue Source: Liver Clinical Info: Mass Specimen Number: [id number] CPT code: 91991, 58957 x6 METHODOLOGY: Deparaffinized sections of prefer/formalin-fixed tissue or PAP/DQ stained slides are incubated with monoclonal/polyclonal antibodies/oligonucleotide probes. Localization is made via biotin free immunoperoxidase method. Appropriate controls are performed and reacted as expected. Results on target cell population are indicated in the following table: RESULTS: ANTIBODY / CLONE RESULT AE1-3 (AE1/AE3/PCK26) negative CD45 (RP2/18) negative Vimentin (V9) positive Melan A (A103) positive S-100 (4C4.9) positive, rare, dim TTF-1 (8G7G3/1) negative Napsin A (Rabbit Polyclonal) negative These tests were developed and their performance characteristics determined by [facility]. They may not have been cleared or approved by the U.S. Food and Drug Administration. The FDA has determined that such clearance or approval is not necessary. The above immunohistochemical/dualISH markers are ordered and reviewed by the Pathologist. INTERPRETATION: Liver, CT-guided core biopsy: Metastatic malignant melanoma. AM:wanda 06/30/2023
[2023-06-26 09:43] LABS: International Normalized Ratio 0.9; Prothrombin Time (Protime)PT. 12.3 SECONDS (11.7-14.9)
[2023-06-26 09:45] LABS: Partial Thromboplast Time 30.4 Seconds (24.1-36.2)
[2023-06-26 09:59] LABS: Platelet Count 308 K/mm3 (150-450)
[2023-06-26] MEDS: Midazolam 2 MG/2 ML Syringe IV (10:08)
[2023-06-26] MEDS: 0.9% Normal Saline (250mL Bag) 250 ML 15 ML IV (10:08)
[2023-06-26] MEDS: fentaNYL 100 MCG/2 ML Ampul IV (10:10)
[2023-06-26] MEDS: Lidocaine 2% (20 ml mdv) 20 ML Vial INFILT (10:20)
--- NOTE | 2023-06-26 10:45 | PCM.OP.PRO ---
Procedure Report Date of Procedure: 06/26/23 Assessment & Plan Assessment/Plan (1) Disseminated cancer: PLAN: PROCEDURE: CT DIRECTED CORE LIVER BIOPSY ORDERING PROVIDER: Dr. Baptiste INDICATION: Male, 82 years old. Disseminated cancer, with liver lesion. PROVIDER: TAZ Fletcher CONSENT: Written informed consent was obtained having explained the risks, benefits and alternatives in detail with the patient who accepted the risks and agreed to proceed. Laboratory review and clinical assessment was performed. PRE-PROCEDURE SEDATION ASSESSMENT: Current history and physical dictated by referring provider and reviewed. No clinical changes since date of exam. Patient has an ASA Class of 2. PROCEDURAL SEDATION PROTOCOL: The Drugs used were: 1 mg Versed, IV, and 25 mcg Fentanyl, IV. The sedation time was: 19 minutes, starting at 1006 and terminated at 1029. The procedural sedation protocol was independently monitored by the department nurse. RADIATION DOSAGE (If Supplied By Facility): CTDIvol = 14.51 mGy, DLP = 247.94 mGycm Individualized dose optimization techniques were used for this CT. TECHNIQUE: The patient was placed in a supine position. Using CT image guidance with image documentation, a suitable location in the left lobe of the liver was identified. The skin surface was prepped and draped in a sterile fashion. 2% lidocaine was used for local anesthesia. Using an anterior approach, puncture of the liver was uneventful with an 18-gauge core needle system. 4, 18-gauge core samples were obtained, and submitted in formalin to the pathologist for further assessment. The needles was removed. An occlusive sterile dressing was applied. Patient tolerated the procedure well, and [facility]. IMPRESSION: 1. CT directed core needle biopsy of the liver, using CT image guidance with image documentation as described. 2. Procedural Sedation protocol utilized with independent monitoring. Procedures Radiology Radiology CT Procedures: 08343 Biopsy Liver
== END | disposition home or self-care (01) ==
LOC: CT 08:48
PROVIDERS: Nurse Practitioner Acute Care; PCP Family Medicine Geriatric Medicine; Referring Provider Internal Medicine Medical Oncology; Visit Provider Internal Medicine Medical Oncology
DX: Z01.818 Encounter for other preprocedural examination (principal); C78.7 Secondary malignant neoplasm of liver and intrahepatic bile duct; K76.89 Other specified diseases of liver; R93.2 Abnormal findings on diagnostic imaging of liver and biliary tract
CPT/HCPCS: 47000; 77012; 85049; 85610; 85730; 88172; 88305; 88307; 88313; 88341; 88342; 99156; J7050

== ENCOUNTER → 2023-06-30 | Outpatient (CLI) | payer MEDICARE, SELFPAY ==
--- NOTE | 2023-06-30 11:30 | PET_ITS ---
6EXAMINATION: FDG PET-CT INDICATIONS: An 82-year-old male with suspected multisystem metastatic neoplastic disease. COMPARISON EXAMINATION: CT of the chest, abdomen, and pelvis report dated 06/12/23. INDEX LESION SIZE SUV INTERPRETATION Left perimandibular, left lateral neck, right vascular space 13.4 mm largest 5.5 max Fulfills quantitative criteria for viable neoplasm. Bilateral hemithorax pulmonary parenchyma 24.9 mm 6.1 Fulfills quantitative criteria for viable neoplasm. Mediastinum and left thoracic perihilum 28.9 mm 6.8 Fulfills quantitative criteria for viable neoplasm. Bilateral axilla 23.3 mm largest 6.7 max Fulfills quantitative criteria for viable neoplasm. Abdominal retroperitoneum and mesentery, bilateral hemipelvis 30.1 mm largest 7.1 max Fulfills quantitative criteria for viable neoplasm. Left and right lobe hepatic parenchyma 40.3 mm largest 6.2 max > 2.0 Fulfills quantitative criteria for viable neoplasm. Osseous skeletal structures 7.9 max Fulfills quantitative criteria for viable neoplasm. TECHNIQUE: Following the intravenous administration of 14.74 mCi of F-18 deoxyglucose via the right hand, multiplanar image acquisitions of the head, neck, chest, abdomen and pelvis to level of mid-thigh, lower extremities obtained at one hour post radiopharmaceutical administration contemporaneously interpreted with the current CT of the head, neck, chest, abdomen and pelvis to level of mid-thigh, lower extremities dated 06/30/[address] of the chest, abdomen, and pelvis report dated 06/12/23 reveal: SERUM GLUCOSE LEVEL: 115 mg/dl. HEIGHT: 70 inches. WEIGHT: 154 lbs. FINDINGS: Head/Neck: Facilitated uptake is noted in the left perimandibular region, left lateral neck involving level IIB, the right vascular space, and yvonne-occipital region. The calculated maximum standard uptake value is 5.5. The maximum axial diameter of the largest corresponding soft tissue density is 13.4. The visualized portion of the cerebral cortical-subcortical structures demonstrate symmetric and preserved glucose metabolism. CHEST: Multifocal increased radiopharmaceutical concentration manifest in the bilateral hemithorax pulmonary parenchyma generating a maximum standard uptake value of 6.1. The largest corresponding parenchymal density demonstrates a maximum axial diameter of 24.9 mm. Enhanced radiopharmaceutical concentration manifest in the mediastinum and left thoracic perihilum. The calculated maximum standard uptake value is 6.8. The maximum axial diameter of the largest corresponding metabolic, morphologic abnormality is 28.9 mm. There is facilitated uptake noted in the bilateral axilla. The calculated maximum standard uptake value is 6.7. The largest corresponding soft tissue density is 23.[address] findings are as follows. Atherosclerotic calcification is defined in the thoracic aorta. The maximum axial diameter of the ascending thoracic aorta is 43.5 mm. Multiple hypermetabolic pulmonary nodules are defined as previously described demonstrating quantitatively significant increased glucose concentration. Coronary arterial calcification is observed. There is evidence of prior median sternotomy. Abdomen/Pelvis: Multifocal abdominal retroperitoneum and mesentery, pelvic mesentery hypermetabolic foci are defined. The calculated maximum standard uptake value is 7.1. The maximum axial diameter of the largest corresponding soft tissue density is 30.1 mm. Left and right lobe hepatic parenchymal hypermetabolic foci are noted. The calculated maximum standard uptake value is 6.2 with a lesion to liver background ratio greater than 2.0. The maximum axial diameter of the largest metabolic abnormality is 40.3 mm. Normal physiologic distribution of the radiopharmaceutical is apparent in the hepatic (3.4) and splenic parenchyma, both renal units, bladder and visualized intestinal tract. Diffuse radiopharmaceutical concentration is noted in all four quadrants of the abdomen and pelvis. The abdomen and pelvis CT findings are as follows. There is atherosclerotic calcification defined in the abdominal aorta without evidence of dilatation-aneurysm formation. Abdominal-pelvic arterial calcification is observed. Scattered colonic diverticulosis is demonstrated without evidence of diverticulitis. Right and left fat containing inguinal hernias are defined. Bilateral inguinal subcentimeter soft tissue densities are ametabolic. Calcified phlebolith formation is noted in the left hemipelvis. Calcifications are noted within the prostate gland. Skeletal/INTEGUMENTARY: Multifocal increased radiopharmaceutical concentration is manifest around the visualized appendicular and axial skeleton as well as subcutaneous tissues. The calculated maximum standard uptake value is 7.9. PET/PET/CT Tumor Base -Thigh Init IMPRESSION: 1. ABNORMAL EXAMINATION INDICATIVE OF MALIGNANT-VIABLE NEOPLASM. 2. Increased radiopharmaceutical concentration defined in the left lateral neck, right vascular space, left yvonne-occipital region fulfills quantitative criteria for malignant transformation. 3. Facilitated uptake noted in the bilateral hemithorax pulmonary parenchyma as well as mediastinal structures left thoracic perihilum fulfill quantitative criteria for viable neoplastic transformation. 4. Increased fluorine labeled glucose identified in the right-left axillary regions fulfills quantitative criteria for malignant involvement. 5. Enhanced tracer visualized in the abdominal retroperitoneum and mesentery, bilateral hemipelvis fulfills quantitative criteria for viable neoplasia. 6. Accentuated FDG concentration demonstrated in the left and right lobe hepatic parenchyma fulfills quantitative criteria for viable hepatic metastatic disease. 7. There is disseminated osseous neoplasia as defined above. Electronic Signature Esa Soni D.O. Accurate Quantification of SUVs for this report are calculated using the exclusive [employer], ([place]. Patent No. [phone] [phone] [place] patent [phone] ). Standardization and correction of the FDG SUV metric exclusively available with [employer] intellectual property, allow for vendor non-specific objective quantitative sequential FDG PET-CT comparison and otherwise unobtainable optimization of the sensitivity and specificity of the examination. [email or web address] Electronically Signed: Esa Soni DO at 8:55 EST ,
== END | disposition home or self-care (01) ==
PROVIDERS: PCP Family Medicine Geriatric Medicine; Referring Provider Family Medicine Geriatric Medicine; Visit Provider Family Medicine Geriatric Medicine
DX: R93.5 Abnormal findings on diagnostic imaging of other abdominal regions, including retroperitoneum (principal)
CPT/HCPCS: 78815; A9552

== ENCOUNTER 2023-07-09 13:41 | Outpatient (RCR) | payer MEDICARE, SELFPAY | END 2023-07-09 23:59 | LOC: NS 13:41 | PROVIDERS: PCP Family Medicine Geriatric Medicine; Visit Provider Nurse Practitioner Family | DX: Z71.3 Dietary counseling and surveillance (principal); C80.0 Disseminated malignant neoplasm, unspecified; R63.0 Anorexia ==

== ENCOUNTER 2023-07-29 15:34 | Outpatient (RCR) | payer MEDICARE, SELFPAY | END 2023-08-09 23:59 | LOC: NS 15:34 | PROVIDERS: PCP Family Medicine Geriatric Medicine; Visit Provider Nurse Practitioner Family | DX: Z71.3 Dietary counseling and surveillance (principal); C80.0 Disseminated malignant neoplasm, unspecified; R63.0 Anorexia ==